=== PATIENT | male | born 1995 | race African-American/Black ===

== ENCOUNTER 2019-08-01 01:33 | Emergency (ER) | payer SELFPAY ==
[~2019-08-01] VITALS: Ht 177.8 cm; Wt 101.6 kg
[2019-08-01 01:40] VITALS: Ht 177.8 cm; Wt 101.6 kg
[2019-08-01 03:34] VITALS: BP 118/73
== END 2019-08-01 03:34 | disposition home or self-care (01) ==
LOC: ED 01:33
DX: J06.9 Acute upper respiratory infection, unspecified (principal)
CPT/HCPCS: J1100; J1885